=== PATIENT | male | born 1945 | race Caucasian/White ===

== ENCOUNTER → 2021-07-09 | Outpatient (CLI) | payer OTHER | LOC: RAD 09:07 | PROVIDERS: ATTEND Nurse Practitioner | DX: M19.011 Primary osteoarthritis, right shoulder (principal); M25.511 Pain in right shoulder ==

== ENCOUNTER → 2021-08-07 | Outpatient (CLI) | payer OTHER, MEDICARE | LOC: MRI 10:32 | PROVIDERS: ATTEND Family Medicine | DX: I67.2 Cerebral atherosclerosis (principal); R90.82 White matter disease, unspecified ==